=== PATIENT | female | born 1940 | race Caucasian/White ===

== ENCOUNTER → 2018-07-11 | Outpatient (REF) | payer MEDICARE, OTHER ==
[~2018-07-11] MED LIST: ACETAMIN500 M1 PO; AMLODIPINE5 MG PO; ASPIRIN LOW DOS81 M2 PO; BABY ASPIRIN81 MG PO; CALCIUM WITH D PO; CARAFATE1 GM PO; CLONIDINE0.1 MG PO; D350000 IU PO; Ergocalciferol PO; FERROUS SULF325 M1 OR; FEXOFENADINE60 MG OR; FEXOFENADINE60 MG PO; GLUCOTROL5 MG PO; HYDROCHLOROT12.5 MG PO; HYDROCHLOROT25 MG PO; IMODIUM2 MG PO; KLOR-CON 88 MEQ PO; LISINOPRIL10 MG PO; LOPID600 MG PO; LYRICA50 MG PO; MELOXICAM; MELOXICAM OR; METFORMIN HCL500 M2 PO; METFORMIN500 M2 PO; METOPROL TAR50 MG PO; METOPROLOL TART50 MG PO; MEVACOR10 MG OR; MOBIC7.5 MG; MOBIC7.5 MG PO; NEURONTIN100 MG OR; PERCOCET 5/325M1 TAB PO; PLAVIX75 MG PO; PROTONIX40 MG PO; Potassium chloride PO; RANITIDINE150 M1 OR; SEROQUEL25 MG PO; SERTRALINE25 MG PO; SIMVASTATIN20 MG PO; SIMVASTATIN40 MG PO; TRICOR145 MG PO; ULTRAM50 MG PO; ZOCOR20 MG PO; ZOCOR5 MG PO; ZPAK PO; ZYRTEC-D ALG PO; simvastatin PO
== END | disposition home or self-care (01) ==
LOC: ULTRASND 12:27
PROVIDERS: ATTEND Internal Medicine Geriatric Medicine
DX: I73.9 Peripheral vascular disease, unspecified (principal)